=== PATIENT | male | born 1960 | race Caucasian/White ===

== ENCOUNTER 2017-06-09 13:15 | Emergency (ER) | payer SELFPAY ==
[~2017-06-09] VITALS: Ht 190.5 cm; Wt 100.0 kg
[2017-06-09 13:16] VITALS: BP 163/87; PULSE 101; RESP 14; TEMP 98.7; O2SAT 96
--- NOTE | 2017-06-09 13:51 | PD ---
HPI Chief Complaint: Cold / Flu Symptoms Time Seen by Provider: 13:44 Travel History International Travel<30 days: No Contact w/Intl Traveler<30days: No Traveled to known affect area: No History of Present Illness HPI This is a 56-year-old male who presents to the emergency department with 1 week of nasal congestion, fevers chills and myalgias, constant, moderate severity, improved today. He wants to go back to work at [employer] but his boss is demanding that he bring a note to work. He has not had a fever in 2 days. [facility] Past Medical History Medical History: Denies Significant Hx Social History Tobacco Use: No Allergies-Medications (Allergen,Severity, Reaction): Coded Allergies: No Known Allergies (Verified Allergy, Unknown, 06/09/17) Review of Systems General / Constitutional: Positive: Fever, Chills HENT: Positive: Rhinorrhea Cardiovascular: No: Chest Pain or Discomfort Physical Exam Narrative GENERAL: Well-nourished, well-developed patient. SKIN: Warm and dry. HEAD: Normocephalic. EYES: No scleral icterus. No injection or drainage. ENT: No posterior pharyngeal erythema or exudates. NECK: Supple, trachea midline. CARDIOVASCULAR: Regular rate and rhythm without murmurs. RESPIRATORY: Breath sounds equal bilaterally. No accessory muscle use. GASTROINTESTINAL: Abdomen soft, non-tender, nondistended. MUSCULOSKELETAL: No cyanosis, or edema. Data Data Last Documented VS Vital Signs Date Time Temp Pulse Resp B/P (MAP) Pulse Ox O2 Delivery O2 Flow Rate FiO2 06/09/17 13:16 98.7 101 14 163/87 (112) 96 MDM Medical Decision Making Medical Screen Exam Complete: Yes Emergency Medical Condition: Yes Differential Diagnosis Viral syndrome, upper respiratory infection, pneumonia, bronchitis Narrative Course This is a 56-year-old male who presents to the emergency department with nasal congestion and some fevers and chills that have been going on for a week. He says he feels a lot better currently. His vital signs are all reassuring and he appears very well. I think the patient can return to work. I think he had a viral upper respiratory infection. Diagnosis Primary Impression: Viral upper respiratory infection Patient Instructions: General Instructions Departure Forms: Tests/Procedures, Work Release Enter return to work date: Jun 09, 2017 Additional Instructions: If you develop severe chest pain, shortness of breath, sweating, lightheadedness , dizziness or difficulty breathing return to the emergency department immediately. Followup with your primary care physician in 2-3 days if your symptoms are not resolved. Med/Other Pt SpecificInfo: No Change to Meds Disposition: 01 DISCHARGE HOME Condition: Stable Natalie Camarillo MD Jun 09, 2017 13:51
== END 2017-06-09 14:36 | disposition home or self-care (01) ==
LOC: NEPD 13:15
DX: J06.9 Acute upper respiratory infection, unspecified (principal)
CPT/HCPCS: 99281

== ENCOUNTER 2017-09-04 13:44 | Emergency (ER) | payer SELFPAY ==
[~2017-09-04] VITALS: Ht 188 cm; Wt 100.0 kg
[2017-09-04 14:16] VITALS: BP 163/74; PULSE 101; RESP 19; TEMP 100; O2SAT 96
[2017-09-04] MEDS ORDERED: DALBAVANCIN INJ 1,500 MG in DEXTROSE 5% IN WATE 500 ML INJ 500 ML IV STA ×2 (16:13)
[2017-09-04] MEDS ORDERED: PHARMACY INFORMATION XX ONE (16:15)
--- NOTE | 2017-09-04 17:14 | PD ---
HPI Chief Complaint: Skin Problem Time Seen by Provider: 15:55 Travel History International Travel<30 days: No Contact w/Intl Traveler<30days: No Traveled to known affect area: No History of Present Illness HPI 56-year-old man presents to the emergency department complaining of pain and swelling to the right leg. He initially noticed a small pinhole couple days ago. He worked a double shift and then afterward noticed leg was painful red and swollen yesterday. He has had some slight chills. He has had one previous episode of infection like this. Had otherwise been feeling well and healthy. History Past Medical History Medical History: Denies Significant Hx Tetanus Vaccination: < 5 Years Influenza Vaccination: No Past Surgical History Surgical History: No Previous Surgery Social History Alcohol Use: Yes (OCC) Tobacco Use: No Allergies-Medications (Allergen,Severity, Reaction): Coded Allergies: No Known Allergies (Verified Allergy, Unknown, 09/04/17) Reported Meds & Prescriptions Reported Meds & Active Scripts Active No Active Prescriptions or Reported Medications Review of Systems Except as stated in HPI: all other systems reviewed are Neg Physical Exam Narrative GENERAL: Well-appearing 56 woman, no acute distress per SKIN: Focused skin assessment warm/dry. NECK: Trachea midline. No JVD. CARDIOVASCULAR: Regular rate and rhythm. No murmur appreciated. RESPIRATORY: No accessory muscle use. Clear to auscultation. Breath sounds equal bilaterally. GASTROINTESTINAL: Abdomen soft, non-tender, nondistended. Hepatic and splenic margins not palpable. MUSCULOSKELETAL: Right leg is edematous and swollen from the knee down. There is a focal area of induration and fluctuance on the posterior calf about 3 x 3 cm or so in size with a central area of ecchymosis. There is a little bit of drainage and some crusting drainage stripping down the leg. Otherwise the leg is well perfused. NEUROLOGICAL: Awake and alert. No obvious cranial nerve deficits. Motor grossly within normal limits. Normal speech. PSYCHIATRIC: Appropriate mood and affect; insight and judgment normal. Data Data Last Documented VS Vital Signs Date Time Temp Pulse Resp B/P (MAP) Pulse Ox O2 Delivery O2 Flow Rate FiO2 09/04/17 14:16 100.0 101 19 163/74 (103) 96 Orders Orders Complete Blood Count With Diff (09/04/17 15:53) Comprehensive Metabolic Panel (09/04/17 15:53) Blood Culture (09/04/17 15:53) Elevate (09/04/17 15:53) Document (09/04/17 15:53) Measurements (09/04/17 15:53) Case Management Consult (09/04/17 ) Pharmacy Information ([facility] Pharmacy Info (09/04/17 16:15) [facility] ([facility]) (09/04/17 16:13) Wound Culture And Gram Stain (09/04/17 17:05) MDM Medical Decision Making Medical Screen Exam Complete: Yes Emergency Medical Condition: Yes Differential Diagnosis Abscess, cellulitis, DVT, other Narrative Course Medical decision 56-year-old who presents emerged department with cellulitis abscess was unilateral leg swelling. History is not suggestive of DVT. Abscess was drained with a moderate amount of drainage expressed. Cultures taken. The leg was wrapped. Will be given IV Garry Bennett. Recommend elevation outpatient follow-up. Diagnosis Primary Impression: Abscess Patient Instructions: General Instructions Additional Instructions: Keep leg elevated to reduce swelling. Use Marquis wrap to provide gentle compression if you are on your feet. Return to the emergency part for any worsening pain redness swelling or drainage. Med/Other Pt SpecificInfo: No Change to Meds Scripts No Active Prescriptions or Reported Meds Disposition: 01 DISCHARGE HOME Condition: Stable Jb Baez MD September 04, 2017 17:14
[2017-09-04 17:33] LABS: AUTOMATED NEUTROPHIL # 9.1 TH/MM3 (1.8-7.7); BASOPHIL % 0.4 % (0.0-2.0); EOSINOPHIL % 0.2 % (0.0-4.0); HEMATOCRIT 41.8 % (39.0-51.0); HEMOGLOBIN 14.2 GM/DL (13.0-17.0); LYMPHOCYTE # 1.6 TH/MM3 (1.0-4.8); MEAN CELL VOLUME 94.2 FL (80.0-100.0); MEAN CORPUSCULAR HEMOGLOBIN 32.1 PG (27.0-34.0); MEAN CORPUSCULAR HGB CONC 34.1 % (32.0-36.0); MEAN PLATELET VOLUME 8.3 FL (7.0-11.0); MONO % 12.6 % (0.0-8.0); MONOCYTE # 1.6 TH/MM3 (0-0.9); NEUT % 73.8 % (16.0-70.0); PLATELET COUNT 208 TH/MM3 (150-450); RED BLOOD COUNT 4.43 MIL/MM3 (4.50-5.90); WHITE BLOOD COUNT 12.4 TH/MM3 (4.0-11.0)
[2017-09-04 17:49] LABS: ALBUMIN 3.4 GM/DL (3.4-5.0); AST (GOT) 15 U/L (15-37); BICARBONATE 24.2 MEQ/L (21.0-32.0); BLOOD UREA NITROGEN 14 MG/DL (7-18); CALCIUM 8.4 MG/DL (8.5-10.1); CHLORIDE 105 MEQ/L (98-107); CREATININE 0.92 MG/DL (0.60-1.30); GLOMERULAR FILTRATION RATE 85 ML/MIN (>89); GLUCOSE,RANDOM 102 MG/DL (74-106); SODIUM (NA) 137 MEQ/L (136-145)
[2017-09-04 17:50] LABS: ALT (GPT) 16 U/L (12-78)
[2017-09-04 17:52] LABS: ALKALINE PHOSPHATASE 53 U/L (45-117); TOTAL BILIRUBIN ADULT 2.2 MG/DL (0.2-1.0); TOTAL PROTEIN 7.8 GM/DL (6.4-8.2)
--- NOTE | 2017-09-04 17:56 | PD ---
Physical Exam Date Seen by Provider: September 04, 2017 Time Seen by Provider: 17:53 Narrative 56-year-old male came to the emergency room with history of leg abscess and cellulitis. Patient was seen by the previous ER physician. Please refer to his history and physical for further details. He had done an I and D and patient is getting [facility]. Plan was to follow-up on the blood test results and if they were within normal limit patient could be discharged home. The blood test results are back and patient has mild leukocytosis and hyperbilirubinemia. The rest of the LFTs are within normal limits. I do not have an old labs to compare the liver function tests with. At this point my recommendation would be to discharge him home and have his primary care follow- up in 1-2 weeks the liver function test. Patient has been informed about this as well. Data Data Last Documented VS Vital Signs Date Time Temp Pulse Resp B/P (MAP) Pulse Ox O2 Delivery O2 Flow Rate FiO2 09/04/17 14:16 100.0 101 19 163/74 (103) 96 Orders Orders Complete Blood Count With Diff (09/04/17 15:53) Comprehensive Metabolic Panel (09/04/17 15:53) Blood Culture (09/04/17 15:53) Elevate (09/04/17 15:53) Document (09/04/17 15:53) Measurements (09/04/17 15:53) Case Management Consult (09/04/17 ) Pharmacy Information ([facility] [place] Pharmacy Info (09/04/17 16:15) [facility] ([facility]) (09/04/17 16:13) Wound Culture And Gram Stain (09/04/17 17:05) Ed Discharge Order (09/04/17 17:56) Labs Laboratory Tests Test 09/04/17 17:00 White Blood Count 12.4 TH/MM3 Red Blood Count 4.43 MIL/MM3 Hemoglobin 14.2 GM/DL Hematocrit 41.8 % Mean Corpuscular Volume 94.2 FL Mean Corpuscular Hemoglobin 32.1 PG Mean Corpuscular Hemoglobin Concent 34.1 % Red Cell Distribution Width 13.0 % Platelet Count 208 TH/MM3 Mean Platelet Volume 8.3 FL Neutrophils (%) (Auto) 73.8 % Lymphocytes (%) (Auto) 13.0 % Monocytes (%) (Auto) 12.6 % Eosinophils (%) (Auto) 0.2 % Basophils (%) (Auto) 0.4 % Neutrophils # (Auto) 9.1 TH/MM3 Lymphocytes # (Auto) 1.6 TH/MM3 Monocytes # (Auto) 1.6 TH/MM3 Eosinophils # (Auto) 0.0 TH/MM3 Basophils # (Auto) 0.0 TH/MM3 CBC Comment DIFF FINAL Differential Comment Blood Urea Nitrogen 14 MG/DL Creatinine 0.92 MG/DL Random Glucose 102 MG/DL Total Protein 7.8 GM/DL Albumin 3.4 GM/DL Calcium Level 8.4 MG/DL Alkaline Phosphatase 53 U/L Aspartate Amino Transf (AST/SGOT) 15 U/L Alanine Aminotransferase (ALT/SGPT) 16 U/L Total Bilirubin 2.2 MG/DL Sodium Level 137 MEQ/L Potassium Level 3.9 MEQ/L Chloride Level 105 MEQ/L Carbon Dioxide Level 24.2 MEQ/L Anion Gap 8 MEQ/L Estimat Glomerular Filtration Rate 85 ML/MIN MDM Supervised Visit with JOSSY: No Diagnosis Primary Impression: Abscess Referrals: [facility] Patient Instructions: General Instructions Additional Instruction: Keep leg elevated to reduce swelling. Use Marquis wrap to provide gentle compression if you are on your feet. Return to the emergency part for any worsening pain redness swelling or drainage. Your liver function test showed slightly elevated bilirubin level. The recommendation is to follow-up with your primary care or the [facility] and have a repeat blood test done to check the liver function test in 1-2 weeks. Scripts No Active Prescriptions or Reported Meds Disposition: 01 DISCHARGE HOME Condition: Stable Adenike Elias MD September 04, 2017 17:56
== END 2017-09-04 18:30 | disposition home or self-care (01) ==
LOC: NEPD 13:44
DX: L02.91 Cutaneous abscess, unspecified (principal)
CPT/HCPCS: 10060; 80053; 85025; 86403; 87040; 87070; 87186; 96365; 99284; J0875; J7060; 87205